=== PATIENT | male | born 1990 | race Caucasian/White ===

== ENCOUNTER 2019-01-22 12:09 | Outpatient (CLI) | payer OTHER | END 2019-01-22 12:12 | disposition home or self-care (01) | LOC: RAD 12:09 | DX: S62.021A Displaced fracture of middle third of navicular [scaphoid] bone of right wrist, initial encounter for closed fracture (principal) ==

== ENCOUNTER → 2021-12-02 | Outpatient (CLI) | payer OTHER | END | disposition home or self-care (01) | LOC: LAB 05:05 | PROVIDERS: ATTEND Obstetrics & Gynecology | DX: Z20.828 Contact with and (suspected) exposure to other viral communicable diseases (principal); Z20.818 Contact with and (suspected) exposure to other bacterial communicable diseases ==

== ENCOUNTER 2023-03-18 20:21 | Emergency (ER) | payer OTHER ==
[~2023-03-18] VITALS: Ht 172.7 cm; Wt 77.1 kg
== END 2023-03-18 21:50 | disposition home or self-care (01) ==
LOC: ER 20:21
DX: R42 Dizziness and giddiness (principal)